=== PATIENT | male | born 1930 | race Caucasian/White ===

== ENCOUNTER 2016-10-19 10:40 | Day surgery (SDC) | payer OTHER, BC ==
[2016-10-18 15:18] VITALS: BMI 24.2
[~2016-10-19 10:40] MED LIST: BACITRACIN 30 GM TUBE TOPICAL OINTMENT TP ONE
[2016-10-19] MEDS ORDERED: LIDOCAINE 1%/EPI 1:100000 (50 ML MULTI DOSE VIAL) ONE (14:02)
[2016-10-19] MEDS ORDERED: BUPIVACAINE HCL/PF 0.5% (5MG/ML) 10 ML VIAL ONE (14:02)
[2016-10-19] MEDS ORDERED: MINERAL OIL 25 ML OIL ONE (14:03)
[2016-10-19] MEDS ORDERED: MIDAZOLAM HCL 2 MG/2 ML SINGLE DOSE VIAL ONE (14:12)
[2016-10-19] MEDS ORDERED: PROPOFOL 20 ML ONE ×3 (14:20→14:52)
[2016-10-19] MEDS ORDERED: LIDOCAINE 1%/EPI 1:100000 (50 ML MULTI DOSE VIAL) INF ONE (14:23)
[2016-10-19] MEDS ORDERED: BUPIVACAINE HCL/PF (5 MG/ML) 30 ML VIAL IJ ONE (14:23)
[2016-10-19] MEDS ORDERED: ceFAZolin SODIUM 1 GM VIAL IVPB ONE (14:25)
[2016-10-19] MEDS ORDERED: SODIUM CHLORIDE 0.9% P/F 10 ML VIAL IJ ONE (14:28)
[2016-10-19] MEDS ORDERED: ceFAZolin SODIUM 1 GM VIAL ONE (14:28)
[2016-10-19] MEDS ORDERED: ONDANSETRON 4 MG/2 ML VIAL IVPUSH PRN ×2 (14:50→15:52)
[2016-10-19] MEDS ORDERED: PROMETHAZINE HCL 25 MG/1 ML VIAL IVPUSH PRN ×2 (14:50→15:52)
[2016-10-19] MEDS ORDERED: ePHEDrine SULFATE 50 MG/1 ML AMPULE ONE (14:57)
[2016-10-19] MEDS ORDERED: LACTATED RINGERS SOLUTION 1,000 ML IV SCH ×3 (15:00→17:30)
[2016-10-19] MEDS ORDERED: OXYCODONE/APAP 5/325MG COMBO TABLET PO PRN (15:45)
--- NOTE | 2016-10-19 15:56 | HP ---
Admitting History and Physical - Admission Chief Complaint: Necrosis Distal Phalynx middle finger post infection History of Present Illness: The patient is a very pleasant 86-year-old male seen in the presence of his daughter regarding infected finger, right. History is relevant for trauma, followed by swelling, discharge, redness, for the last 5 weeks. Patient was seen, and according to his daughter, a sulfa wrap was put on his finger. This was approximately 2 weeks ago. Patient did have excessive bleeding because of his anticoagulant therapy and has not been seen since. His past history is negative for any trauma to the hand. History is relevant for aging and atrophy of the skin. He has history of high cholesterol, had left hip replacement, cardiac conditions, has a stent, hypertension, and arthritis. There is no tenosynovitis. There is significant atrophy of his right thenar eminence/muscle as well as atrophy of hypothenar muscles, patient did not realize and has no recollection why his hand is so atrophic. No c/o loss of sensation. Sensory evaluated, found to be decreased in his median nerve distribution to fingers. He has been on cephalexin 500 mg for the last 2-3 days. EVALUATION/EXAMINATION: Right middle finger shows signs of swelling, redness, tenderness, discharge located in the distal Phalynx with necrosis of skin, exposed bone. There is a eschar covering distal third of his middle finger. IMPRESSION: Distal Phalynx Necrosis.Right middle finger post infection History Source: Patient, Family Member - Smoking History Smoking history: Former smoker Have you smoked in the past 12 months: No - Alcohol/Substance Use Hx Alcohol Use: No Home Medications - Allergies Allergies/Adverse Reactions: Allergies Allergy/AdvReac Type Severity Reaction Status Date / Time No Known Allergies Allergy Verified 10/19/16 12:38 - Home Medications Home Medications: Ambulatory Orders Aspirin [ASA -] 81 mg PO DAILY 10/18/16 Atorvastatin Calcium 10 mg PO DAILY 10/18/16 Clopidogrel Bisulfate [Clopidogrel] 75 mg PO DAILY 10/18/16 Doxazosin Mesylate 4 mg PO DAILY 10/18/16 Lisinopril/Hydrochlorothiazide [Lisinopril-Hctz 20-12.5 mg Tab] 1 each PO DAILY 10/18/16 Metoprolol Succinate [Toprol Xl] 100 mg PO DAILY 10/18/16 Physical Examination Vital Signs: Vital Signs Temperature 98.2 F 10/19/16 15:20 Pulse Rate 65 10/19/16 15:45 Respiratory Rate 19 10/19/16 15:45 Blood Pressure 120/53 10/19/16 15:45 O2 Sat by Pulse Oximetry (%) 96 10/19/16 15:45 Assessment/Plan Necrosis of distal phalynx Plan Amputation Distal Phalynx, reconstruction with Fish/flap 23 hour stay for IV antibiotics Risks explained, including multiple surgeries, loss of skin bone infection, delayed closure as well as suture line delayed healing
[2016-10-19] MEDS ORDERED: ACETAMINOPHEN 325 MG TABLET (FP) PO PRN (16:14)
[2016-10-19] MEDS ORDERED: oxyCODONE HCL 5 MG TABLET PO PRN (16:14)
--- NOTE | 2016-10-19 17:09 | OP ---
DATE OF OPERATION: DATE OF DICTATION: 10/19/2016 PREOPERATIVE DIAGNOSIS: Distal phalanx necrosis right middle finger. POSTOPERATIVE DIAGNOSIS: Distal phalanx necrosis right middle finger. Etiology infection. PROCEDURE DONE: 1. Distal phalanx amputation. 2. Removal of cartilage from the distal end of the middle phalanx. 3. Flap closure. SURGEON: Janny Knox M.D. ANESTHESIA: General anesthesia with local 1% lidocaine with epinephrine and 0.25% Marcaine, a total of 6 mL. HISTORY: Patient is an 86-year-old male; over 5 to 6 weeks ago, he had injured his middle finger, did not seek any treatment. Later, he was seen. Cannot recall the physician's name, and was put on a sulfa wrap. Following week he did not return back for more medical care and recently came to the wound clinic at [facility] seeking treatment for the finger. Examination showed post infected finger with necrosis of the distal tip. Patient was then scheduled for amputation of the distal phalanx. Procedure and complications as well as management was discussed at length in the presence of his daughter. DESCRIPTION OF PROCEDURE: Patient was brought to the operating room. Consents had been taken with the risks explained and all questions answered. At this time he was transferred to the operating table with standard procedure, site identification was carried out. Once agreed, base of the middle finger was injected with 1% lidocaine with epinephrine and 0.25% Marcaine. This was given at the base of the middle finger in the dorsal aspect. Skin and hand were prepped with Betadine soaked solution and then draped in a standard aseptic manner. Marker was used to make markings over the area to be amputated. A fish flap was designed on the volar aspect. Draping was done in a standard aseptic manner. Initial incision was made along the distal crease line and dissection was done along the previous markings. Fish shaped flap was designed on the volar aspect. Laceration was carried down to the DIP joint. It was then transected at the DIP. Cartilage covering the middle phalanx was then removed using bone rongeur. Wound was then well irrigated with normal saline solution. Flexor profundus was transected at the middle of the middle phalanx. Extensor tendons were transected at the DIP. Following which the flaps were approximated using 5-0 Prolene, interrupted sutures were applied. At the end of the procedure circulation to the flaps was satisfactory. At this time the area was then closed using Xeroform bacitracin, 2x2s, and a Leonard. Estimated blood loss was minimal. Suture, instrument count was correct. Patient was then sent to recovery room in a satisfactory condition. A culture was also taken from the middle phalanx and sent as a separate specimen. Patient was given 2 g of Ancef prior to surgery. He will be observed for 23 hours with IV antibiotics. JANNY KNOX M.D. [id number]
[2016-10-19] MEDS: CEFAZOLIN (PRE-DOCKED) 50 ML IVPB SCH (17:47)
[2016-10-20] MEDS: CEFAZOLIN (PRE-DOCKED) 50 ML IVPB SCH ×2 (02:17→10:46)
[2016-10-20 14:24] VITALS: BP 111/57; PULSE 82; TEMP 99.1
--- NOTE | 2016-10-27 11:18 | PATH ---
Surgical Pathology Report Patient Name: EULALIA BARRIOS [facility]. Rec. #: [id number] /Age/Gender: 1930 (Age: 86) / M Account: [id number] Location: [facility] Taken: 10/19/2016 Received: 10/20/2016 Reported: 10/21/2016 Physicians: Ren Kerns M.D. Specimen(s) Received A: RIGHT DISTAL PHALANX B: CARTILAGE MIDDLE PHALANX DIP JOINT, RIGHT Clinical History Right middle finger x3 weeks, noticed black eschar Final Diagnosis A. DISTAL PHALANX, RIGHT, AMPUTATION: ULCERATED AND NECROTIC SKIN AND UNDERLYING SOFT TISSUE WITH GANGRENOUS NECROSIS. UNDERLYING BONE WITH NECROSIS AND ASSOCIATED ACUTE OSTEOMYELITIS. ULCERATION AND NECROSIS FOCALLY EXTENDS TO THE SKIN AND SOFT TISSUE MARGIN. BONE AT RESECTION MARGIN WITH FOCAL NECROSIS. B. CARTILAGE, RIGHT MIDDLE PHALANX DIP JOINT: FRAGMENTS OF CARTILAGE WITH FOCAL NECROSIS. Electronically Signed Yash Haque M.D. Gross Description A. Received in formalin labeled "distal phalanx amputated right" is a 2.5 x 1.7 x 1.7 cm distal finger amputation specimen. The entire epidermal surface displays a black, gangrenous lesion extending to and likely involving the underlying bone. The lesion extends to 0.1 cm from the skin and soft tissue margin. Junior [employer]ant sections are submitted in 3 cassettes as follows: 1-lesion with underlying bone, following decalcification; 2-bone margin, following decalcification; 3-skin and soft tissue margin. B. Received in formalin labeled "cartilage right middle phalanx joint" is a 0.9 x 0.6 x 0.2 cm aggregate of aragon fragments of cartilage and possible bone. The specimen is entirely submitted in one cassette. DL/10/20/2016 saudi10/20/2016
== END 2016-10-20 15:33 | disposition home or self-care (01) ==
LOC: JASU-SURG 10:40 → J5S 16:45 → JASU-SURG 10-20 15:33
PROVIDERS: ATTEND Plastic Surgery
PROC: 0X6Q0Z3 Detachment at Right Middle Finger, Low, Open Approach (ICD-10-PCS; principal; 2016-10-19 13:00)
DX: B99.9 Unspecified infectious disease (principal); M90.5 Osteonecrosis in diseases classified elsewhere
CPT/HCPCS: 87070; 87075; 87186; 87205; 88304-TC; 88311-TC; 94760